=== PATIENT | male | born 1955 | race Caucasian/White ===

== ENCOUNTER → 2016-07-14 | Outpatient (CLI) | payer MEDICAID ==
--- NOTE | 2016-07-18 11:23 | MR ---
EXAMINATION: MRI lumbar spine HISTORY: Pain COMPARISON: Radiographs dated 07/04/2016 TECHNIQUE: Multiplanar and multisequence images obtained through the lumbar spine without contrast. FINDINGS: The lumbar spinal alignment appears normal. There is possible minimal wedging along the rawls perior endplate at L1. Otherwise the vertebral body heights appear maintained. No suspicious bone ma rrow signal changes noted. Mild perifacet edema is noted at L4-L5. The distal spinal cord appears no rmal and the conus terminates at L1-L2. The SI joints are symmetric. Visualized retroperitoneal stru ctures appear normal. T12-L1: Unremarkable. L1-L2: Unremarkable. L2-L3: Small diffuse disc bulge without significant spinal canal stenosis. Mild bilateral neural for aminal stenosis. L3-L4: Small diffuse disc bulge without significant spinal canal stenosis. Mild to moderate bilatera l neural foraminal stenosis. Mild bilateral facet hypertrophy. L4-L5: Trace anterolisthesis of L4 on L5 with a moderate diffuse disc bulge with facet and ligamentu m flavum hypertrophy resulting in severe spinal canal stenosis. There is moderate to severe bilatera l neural foraminal stenosis. L5-S1: Grossly unremarkable. IMPRESSION: 1. Multilevel degenerative disc disease noted within the lumbar spine most prominent at L4-L5 with s evere spinal canal stenosis. Individual details above.
== END ==
LOC: MW.MRI 15:10
PROVIDERS: ATTEND Internal Medicine
DX: M51.36 Other intervertebral disc degeneration, lumbar region (principal); M48.06 Spinal stenosis, lumbar region; M54.9 Dorsalgia, unspecified
CPT/HCPCS: 72148; 72148-26; 72158; 72158-26

== ENCOUNTER → 2016-09-11 | Outpatient (CLI) | payer MEDICAID | LOC: MW.CHIM 07:20 | PROVIDERS: ATTEND Internal Medicine | DX: M54.9 Dorsalgia, unspecified (principal) | CPT/HCPCS: 36415; G0480 ==